=== PATIENT | female | born 1990 | race Caucasian/White ===

== ENCOUNTER 2025-01-27 22:50 | Emergency (ER) | payer BC ==
[~2025-01-27] VITALS: Ht 185.4 cm; Wt 89.8 kg
[2025-01-27] MEDS ORDERED: ALLEGRA ALLERGY60 MG PO (22:56)
[2025-01-27] MEDS ORDERED: NORETHINDRONE AC5 MG PO (22:57)
[2025-01-27] MEDS ORDERED: SODIUM CHLORIDE 0.9% 1,000 ML IV ONE (23:00)
[2025-01-27] MEDS ORDERED: KETOROLAC TROMETHAMINE 30 MG/ML VIAL IV ONE (23:00)
[2025-01-28] MEDS ORDERED: BUTALB-ACETAMI1 EACH PO (00:10)
[2025-01-28 00:16] VITALS: BP 120/65
== END 2025-01-28 00:16 | disposition home or self-care (01) ==
LOC: ED 22:50
DX: G43.909 Migraine, unspecified, not intractable, without status migrainosus (principal); Z91.02 Food additives allergy status; Z88.8 Allergy status to other drugs, medicaments and biological substances; Z79.899 Other long term (current) drug therapy
CPT/HCPCS: 96374; 96375; 99283-25; J1200; J1885; J7030